=== PATIENT | male | born 1960 | race African-American/Black ===

== ENCOUNTER 2016-06-11 13:35 | Inpatient (IN) | payer OTHER ==
[~2016-06-11] VITALS: Ht 160 cm; Wt 71.7 kg
[~2016-06-11 13:35] MED LIST: AMLO10TA80 PO; ATEN100T PO; HYDR-4134 PO; MULT-1146 PO
[2016-06-11] MEDS ORDERED: MORPHINE SULFATE 4 MG/ML CPJ (NOT FOR IM USE) IV STA (14:16)
[2016-06-11] MEDS ORDERED: SODIUM CHLORIDE 0.9% 1,000 ML IV ONE (14:16)
[2016-06-11] MEDS ORDERED: ONDANSETRON HCL 4MG/2ML VIAL IV STA (14:16)
[2016-06-11 15:00] LABS: BASOPHILS % 1.8 % (0.0-2.0); EOSINOPHILS % 3.9 % (0.0-5.0); HEMATOCRIT. 26.8 % (42.0-52.0); HEMOGLOBIN. 8.1 g/dL (14.0-18.0); LYMPHOCYTES % 41.2 % (20.0-50.0); MEAN CORPUSCULAR HEMOGLOBIN 20.9 pg (28.0-32.0); MEAN CORPUSCULAR HGB CONC 30.2 g/dL (31.0-37.0); MEAN CORPUSCULAR VOLUME 69.3 fL (80.0-94.0); MEAN PLATELET VOLUME 8.4 fl (7.4-10.4); MONOCYTES % 7.7 % (2.0-8.0); NEUTROPHILS % 45.4 % (40.0-76.0); PLATELET 358 x1000/uL (130-400); RED BLOOD CELL COUNT 3.87 mill/uL (4.7-6.1); RED CELL DISTRIBUTION WIDTH 19.2 % (11.6-14.6); WHITE BLOOD COUNT 5.3 x1000/uL (4.5-11.0)
[2016-06-11 15:02] LABS: ADD RBC MORPHOLOGY YES; DIFFERENTIAL COMMENT 1
[2016-06-11 15:11] LABS: PARTIAL THROMBOPLASTIN TIME 22.6 sec (24.0-34.0); PROTHROMBIN TIME 10.3 sec
[2016-06-11 15:15] LABS: ANION GAP 13; CALCIUM 8.5 mg/dL (8.5-10.1); CARBON DIOXIDE 29 mEq/L (21-32); CHLORIDE 106 mEq/L (98-107); UREA NITROGEN BLOOD 43 mg/dL (7-21); eGFR 19 mL/min (>60)
[2016-06-11 15:16] LABS: ALANINE AMINOTRANSFERASE 27 IU/L (13-61); ALBUMIN 3.4 g/dL (3.4-5.0); INDEX HEMOLYSI 1 (1-3); INDEX ICTERIC 1 (1-4); INDEX LIPEMIC 1 (1-3)
[2016-06-11 15:19] LABS: NT PRO B-TYPE NATRIURETIC PEP 1305 pg/mL (5-125); TROPONIN I < 0.02 ng/mL (0.00-0.04)
[2016-06-11 15:33] LABS: HYPOCHROMASIA 2+; PLATELET ESTIMATE NORMAL
[2016-06-11] MEDS ORDERED: FUROSEMIDE 20MG/2ML VIAL IVP ONE (16:00)
[2016-06-11 16:26] LABS: CLARITY URINE CLEAR (CLEAR); COLOR URINE YELLOW (YELLOW); GLUCOSE URINE NEGATIVE (NEGATIVE); KETONES URINE NEGATIVE (NEGATIVE); LEUKOCYTE ESTERASE URINE NEGATIVE (NEGATIVE); NITRITE URINE NEGATIVE (NEGATIVE); OCCULT BLOOD URINE NEGATIVE (NEGATIVE); PH URINE 6.5 (4.5-8.0); PROTEIN URINE 2+ (NEGATIVE); SPECIFIC GRAVITY URINE 1.013 (1.005-1.030); UROBILINOGEN URINE 0.2 E.U./dL (0.2-1.0)
[2016-06-11] MEDS ORDERED: CEFTRIAXONE 1 G PREMIX 50 ML IV ONE (16:45)
[2016-06-11 17:13] LABS: BACTERIA URINE TRACE; RBC URINE NONE SEEN /hpf (0-2); SQUAMOUS EPITHELIAL CELL URINE FEW /lpf (RARE/1+); WBC URINE 0-2 /hpf (0-2)
[2016-06-11] MEDS ORDERED: ENALAPRIL 2.5MG/2ML VIAL 2ML IV ONE (18:15)
[2016-06-11] MEDS ORDERED: CLONIDINE 0.1MG TABLET PO PRN (19:45)
[2016-06-11] MEDS ORDERED: ACETAMINOPHEN 325MG TABLET PO PRN (19:45)
[2016-06-11] MEDS ORDERED: IPRATROPIUM/ALBUTEROL 0.5-3(2.5)MG/3ML NEB INH PRN (19:45)
[2016-06-11] MEDS ORDERED: HYDROCODONE/ACETAMINOPHEN 5/325MG TABLET PO PRN (19:45)
[2016-06-11] MEDS ORDERED: ONDANSETRON HCL 4MG/2ML VIAL IV PRN (19:45)
[2016-06-11] MEDS ORDERED: MAGNESIUM/ALUMINUM HYDROXIDE/SIMETHICONE 30ML UDC PO PRN (19:45)
[2016-06-11 20:05] VITALS: BP 169/106
[2016-06-11 20:24] LABS: *AMPHETAMINES SCREEN URINE NEGATIVE (NEGATIVE); *BARBITURATES SCREEN URINE NEGATIVE (NEGATIVE); *BENZODIAZEPINES SCREEN URINE NEGATIVE (NEGATIVE); *COCAINE SCREEN URINE NEGATIVE (NEGATIVE); CANNABINOID URINE SCREEN NEGATIVE (NEGATIVE); ECSTASY MDMA SCREEN URINE NEGATIVE (NEGATIVE); METHADONE URINE SCREEN NEGATIVE (NEGATIVE); OPIATES URINE SCREEN PRESUMTIVE POSITIVE (NEGATIVE); PHENCYCLIDINE URINE SCREEN NEGATIVE (NEGATIVE)
[2016-06-11 22:00] VITALS: BP 166/116
[2016-06-11] MEDS ORDERED: HYDR-4135 PO (22:28)
[2016-06-11] MEDS: ATENOLOL 100 MG TABLET PO SCH (23:15)
[2016-06-11 23:28] LABS: ANION GAP 12; CALCIUM 8.2 mg/dL (8.5-10.1); CARBON DIOXIDE 28 mEq/L (21-32); CHLORIDE 108 mEq/L (98-107); CREATINE KINASE 124 IU/L (39-308); CREATINE KINASE MB FRACTION 0.8 ng/mL (0.5-3.6); INDEX HEMOLYSI 1 (1-3); INDEX ICTERIC 1 (1-4); INDEX LIPEMIC 1 (1-3); TROPONIN I < 0.02 ng/mL (0.00-0.04); UREA NITROGEN BLOOD 40 mg/dL (7-21); eGFR 20 mL/min (>60)
[2016-06-12] VITALS (7 sets, daily range): BP systolic 129–179; BP diastolic 81–111
[2016-06-12 07:50] LABS: BASOPHILS % 1.2 % (0.0-2.0); HEMATOCRIT. 24.8 % (42.0-52.0); HEMOGLOBIN. 7.6 g/dL (14.0-18.0); LYMPHOCYTES % 35.7 % (20.0-50.0); MEAN CORPUSCULAR HEMOGLOBIN 21.4 pg (28.0-32.0); MEAN CORPUSCULAR HGB CONC 30.8 g/dL (31.0-37.0); MEAN CORPUSCULAR VOLUME 69.4 fL (80.0-94.0); MEAN PLATELET VOLUME 8.9 fl (7.4-10.4); NEUTROPHILS % 48.1 % (40.0-76.0); PLATELET 317 x1000/uL (130-400); RED BLOOD CELL COUNT 3.57 mill/uL (4.7-6.1); RED CELL DISTRIBUTION WIDTH 19.3 % (11.6-14.6); WHITE BLOOD COUNT 5.1 x1000/uL (4.5-11.0)
[2016-06-12 07:56] LABS: DIFFERENTIAL COMMENT 1
[2016-06-12 08:19] LABS: CREATINE KINASE 209 IU/L (39-308); CREATINE KINASE MB FRACTION < 0.5 ng/mL (0.5-3.6); HDL CHOLESTEROL 43 mg/dL (40-59); INDEX HEMOLYSI 1 (1-3); INDEX ICTERIC 1 (1-4); INDEX LIPEMIC 1 (1-3); LDL CHOLESTEROL 114 mg/dL (5-100); THYROID STIMULATING HORMONE 0.45 uIU/mL (0.36-3.74); TRIGLYCERIDE 144 mg/dL (0-150); TROPONIN I < 0.02 ng/mL (0.00-0.04)
[2016-06-12] MEDS: MULTIVITAMINS,THER W-MINERALS TABLET PO SCH (08:31)
[2016-06-12] MEDS: AMLODIPINE 10MG TABLET PO SCH (08:31)
[2016-06-12] MEDS ORDERED: MEDICATION NOT ON FORMULARY EA (Multivitamin (Multi Vitamin Daily) 1 EACH) PO SCH (09:00)
[2016-06-12] MEDS ORDERED: HYDRALAZINE HCL 50MG TABLET PO SCH (09:00)
[2016-06-12] MEDS: ATENOLOL 100 MG TABLET PO SCH ×2 (09:16→21:22)
[2016-06-12] MEDS ORDERED: CLONIDINE 0.1MG TABLET PO SCH (14:00)
[2016-06-12] MEDS: PANTOPRAZOLE SODIUM 40 MG/VIAL IV SCH (14:41)
[2016-06-12] MEDS: HYDRALAZINE HCL 25MG TABLET PO SCH ×2 (14:41→22:21)
[2016-06-12] MEDS ORDERED: CEFTRIAXONE 1 G PREMIX 50 ML IV SCH (16:00)
[2016-06-12] MEDS ORDERED: ATORVASTATIN CALCIUM 10MG TABLET PO SCH (21:00)
[2016-06-13] VITALS (7 sets, daily range): BP systolic 129–187; BP diastolic 88–110
[2016-06-13] MEDS: HYDRALAZINE HCL 25MG TABLET PO SCH (05:28)
[2016-06-13] MEDS: AMLODIPINE 10MG TABLET PO SCH (10:19)
[2016-06-13] MEDS: MULTIVITAMINS,THER W-MINERALS TABLET PO SCH (10:20)
[2016-06-13] MEDS: ATENOLOL 100 MG TABLET PO SCH (10:20)
[2016-06-13] MEDS: PANTOPRAZOLE SODIUM 40 MG/VIAL IV SCH (10:20)
[2016-06-13] MEDS ORDERED: AMPICILLIN 500 MG in SODIUM CHLORIDE 0.9% 50 ML IV SCH (12:00)
[2016-06-13] MEDS ORDERED: HYDRALAZINE HCL 50MG TABLET PO SCH (14:00)
[2016-06-13] MEDS ORDERED: HYDR-4135 PO (14:22)
[2016-06-14] MEDS ORDERED: FAMOTIDINE 20MG TABLET PO SCH (09:00)
== END 2016-06-13 17:40 | disposition home or self-care (01) | DRG 194 ==
LOC: ER 14:14 → 7WST 16:34
PROVIDERS: ADMIT Internal Medicine; ATTEND Internal Medicine
DX: I13.0 Hypertensive heart and chronic kidney disease with heart failure and stage 1 through stage 4 chronic kidney disease, or unspecified chronic kidney disease (principal); N17.9 Acute kidney failure, unspecified; N18.4 Chronic kidney disease, stage 4 (severe); N39.0 Urinary tract infection, site not specified; N04.9 Nephrotic syndrome with unspecified morphologic changes; I50.9 Heart failure, unspecified; E87.6 Hypokalemia; E78.5 Hyperlipidemia, unspecified; D64.9 Anemia, unspecified; R31.9 Hematuria, unspecified; R42 Dizziness and giddiness; E78.00 Pure hypercholesterolemia, unspecified; F17.210 Nicotine dependence, cigarettes, uncomplicated
CPT/HCPCS: 36415; 71010; 74176; 80048; 80053; 80061; 80305; 81001; 82550; 82553; 83605; 83880; 84443; 84484; 85025; 85610; 85730; 86850; 86900; 86920; 87040; 87077; 87086; 87186; 93005; 93970; 96361; 96365; 96375; 99285; C9113; J0290; J0696; J1940; J2270; J2405; J3490; J7030; J7050

== ENCOUNTER 2016-07-02 14:14 | Emergency (ER) | payer OTHER ==
[~2016-07-02] VITALS: Ht 167.6 cm; Wt 79.0 kg
[~2016-07-02 14:14] MED LIST changes: -HYDR-4134 PO; +HYDR-4135 PO
[2016-07-02 15:42] LABS: ADD RBC MORPHOLOGY YES; BASOPHILS % 1.4 % (0.0-2.0); DIFFERENTIAL COMMENT 1; EOSINOPHILS % 5.8 % (0.0-5.0); HEMATOCRIT. 26.5 % (42.0-52.0); MEAN CORPUSCULAR HEMOGLOBIN 20.7 pg (28.0-32.0); MEAN CORPUSCULAR HGB CONC 30.3 g/dL (31.0-37.0); MEAN CORPUSCULAR VOLUME 68.4 fL (80.0-94.0); MEAN PLATELET VOLUME 8.9 fl (7.4-10.4); MONOCYTES % 11.9 % (2.0-8.0); NEUTROPHILS % 57.9 % (40.0-76.0); PLATELET 321 x1000/uL (130-400); RED BLOOD CELL COUNT 3.88 mill/uL (4.7-6.1); WHITE BLOOD COUNT 5.8 x1000/uL (4.5-11.0)
[2016-07-02 15:47] LABS: CHLORIDE 106 mEq/L (98-107); INDEX HEMOLYSI 1 (1-3); INDEX ICTERIC 1 (1-4); INDEX LIPEMIC 1 (1-3)
[2016-07-02 15:54] LABS: ALANINE AMINOTRANSFERASE 36 IU/L (13-61); ALBUMIN 3.3 g/dL (3.4-5.0); ANION GAP 11; CALCIUM 9.2 mg/dL (8.5-10.1); CARBON DIOXIDE 29 mEq/L (21-32); UREA NITROGEN BLOOD 36 mg/dL (7-21)
[2016-07-02 15:58] LABS: eGFR 21 mL/min (>60)
[2016-07-02 16:00] LABS: NT PRO B-TYPE NATRIURETIC PEP 626 pg/mL (5-125); TROPONIN I < 0.02 ng/mL (0.00-0.04)
[2016-07-02 16:15] LABS: HYPOCHROMASIA 2+; PLATELET ESTIMATE NORMAL
[2016-07-02 16:16] LABS: ANISOCYTOSIS 1+
[2016-07-02 16:52] LABS: CLARITY URINE CLEAR (CLEAR); COLOR URINE YELLOW (YELLOW); GLUCOSE URINE NEGATIVE (NEGATIVE); KETONES URINE NEGATIVE (NEGATIVE); LEUKOCYTE ESTERASE URINE NEGATIVE (NEGATIVE); NITRITE URINE NEGATIVE (NEGATIVE); OCCULT BLOOD URINE NEGATIVE (NEGATIVE); PH URINE 7.5 (4.5-8.0); PROTEIN URINE 1+ (NEGATIVE); UROBILINOGEN URINE 0.2 E.U./dL (0.2-1.0)
[2016-07-02 16:55] LABS: BACTERIA URINE NONE SEEN; CALCIUM PHOSPHATE CRYSTALS UR NONE SEEN /lpf; RBC URINE NONE SEEN /hpf (0-2); SQUAMOUS EPITHELIAL CELL URINE NONE SEEN /lpf (RARE/1+); WAXY CASTS URINE NONE SEEN /lpf; WBC URINE 0-2 /hpf (0-2); YEAST URINE NONE SEEN
[2016-07-02] MEDS ORDERED: FUROSEMIDE 20MG/2ML VIAL IVP NR (17:15)
[2016-07-02 18:06] VITALS: BP 164/94
== END 2016-07-02 18:27 | disposition home or self-care (01) ==
LOC: ER 14:31
DX: R60.0 Localized edema (principal); I11.0 Hypertensive heart disease with heart failure; I50.9 Heart failure, unspecified; E78.00 Pure hypercholesterolemia, unspecified; E78.5 Hyperlipidemia, unspecified; F17.200 Nicotine dependence, unspecified, uncomplicated
CPT/HCPCS: 36415; 71010; 80053; 81001; 83880; 84484; 85025; 85610; 93005; 93970; 96374; 99285; J1940

== ENCOUNTER 2017-01-18 15:05 | Observation (INO) | payer MEDICAID, OTHER ==
[~2017-01-18] VITALS: Ht 160 cm; Wt 75.4 kg
[2017-01-18 17:17] LABS: CHLORIDE 106 mEq/L (98-107)
[2017-01-18 17:18] LABS: HEMATOCRIT. 25.5 % (42.0-52.0); HEMOGLOBIN. 7.9 g/dL (14.0-18.0); MEAN CORPUSCULAR HEMOGLOBIN 21.3 pg (28.0-32.0); MEAN CORPUSCULAR VOLUME 68.8 fL (80.0-94.0); MEAN PLATELET VOLUME 8.5 fl (7.4-10.4); PLATELET 344 x1000/uL (130-400); RED BLOOD CELL COUNT 3.71 mill/uL (4.7-6.1); RED CELL DISTRIBUTION WIDTH 18.6 % (11.6-14.6)
[2017-01-18 17:20] LABS: PROTHROMBIN TIME 10.1 sec (9.4-11.6)
[2017-01-18 17:25] LABS: CARBON DIOXIDE 25 mEq/L (21-32)
[2017-01-18 17:29] LABS: TROPONIN I < 0.02 ng/mL (0.00-0.04)
[2017-01-18 17:46] LABS: CLARITY URINE CLEAR (CLEAR); COLOR URINE YELLOW (YELLOW); GLUCOSE URINE NEGATIVE (NEGATIVE); KETONES URINE NEGATIVE (NEGATIVE); LEUKOCYTE ESTERASE URINE NEGATIVE (NEGATIVE); NITRITE URINE NEGATIVE (NEGATIVE); OCCULT BLOOD URINE NEGATIVE (NEGATIVE); PH URINE 5.5 (4.5-8.0); PROTEIN URINE 2+ (NEGATIVE); SPECIFIC GRAVITY URINE 1.016 (1.005-1.030); UROBILINOGEN URINE 0.2 E.U./dL (0.2-1.0)
[2017-01-18 17:56] LABS: *AMPHETAMINES SCREEN URINE NEGATIVE (NEGATIVE); *BARBITURATES SCREEN URINE NEGATIVE (NEGATIVE); *BENZODIAZEPINES SCREEN URINE NEGATIVE (NEGATIVE); *COCAINE SCREEN URINE NEGATIVE (NEGATIVE); CANNABINOID URINE SCREEN NEGATIVE (NEGATIVE); METHADONE URINE SCREEN NEGATIVE (NEGATIVE); OPIATES URINE SCREEN NEGATIVE (NEGATIVE); PHENCYCLIDINE URINE SCREEN NEGATIVE (NEGATIVE)
[2017-01-18 17:57] LABS: PLATELET ESTIMATE NORMAL
[2017-01-18 23:30] VITALS: BP 157/101
[2017-01-19] VITALS (7 sets, daily range): BP systolic 129–140; BP diastolic 86–91
[2017-01-19] MEDS ORDERED: DIPHENHYDRAMINE 50MG/ML VIAL IV PRN (00:15)
[2017-01-19] MEDS ORDERED: CLONIDINE 0.1MG TABLET PO PRN (00:15)
[2017-01-19] MEDS ORDERED: ONDANSETRON HCL 4MG/2ML VIAL IV PRN (00:15)
[2017-01-19] MEDS ORDERED: ACETAMINOPHEN 325MG TABLET PO PRN (00:15)
[2017-01-19] MEDS ORDERED: IPRATROPIUM/ALBUTEROL 0.5-3(2.5)MG/3ML NEB INH PRN (00:15)
[2017-01-19] MEDS ORDERED: MAGNESIUM/ALUMINUM HYDROXIDE/SIMETHICONE 30ML UDC PO PRN (00:15)
[2017-01-19 02:18] LABS: TOTAL IRON BINDING CAPACITY 503 ug/dL (250-450)
[2017-01-19] MEDS ORDERED: IRON SUCROSE COMPLEX 100 MG/5 ML ML IV NR (03:00)
[2017-01-19] MEDS: SODIUM CHLORIDE 0.9% INJ 3ML FLUSH IVF SCH ×2 (06:33→14:10)
[2017-01-19] MEDS ORDERED: ATENOLOL 50 MG TABLET PO SCH (09:00)
[2017-01-19] MEDS ORDERED: AMLODIPINE 10MG TABLET PO SCH (09:00)
== END 2017-01-19 18:00 | disposition home or self-care (01) ==
LOC: ER 15:38 → INTOOBSV 19:47 → 6WST 19:47 → ENRESERV 22:30 → 6WST 01-19 00:05
PROVIDERS: ADMIT Internal Medicine; ATTEND Internal Medicine
DX: D64.9 Anemia, unspecified (principal); I13.0 Hypertensive heart and chronic kidney disease with heart failure and stage 1 through stage 4 chronic kidney disease, or unspecified chronic kidney disease; I50.9 Heart failure, unspecified; N18.9 Chronic kidney disease, unspecified; N17.0 Acute kidney failure with tubular necrosis; F17.210 Nicotine dependence, cigarettes, uncomplicated
CPT/HCPCS: 36415; 71010; 80053; 80305; 81001; 83036; 83540; 83550; 83880; 84484; 85025; 85610; 86850; 86900; 86901; 93005; 96374; 99285; G0378

== ENCOUNTER 2018-05-19 16:27 | Emergency (ER) | payer OTHER ==
[~2018-05-19] VITALS: Ht 160 cm; Wt 84.0 kg
[~2018-05-19 16:27] MED LIST changes: -HYDR-4135 PO
[2018-05-19 22:51] LABS: BASOPHILS % 1.1 % (0.0-2.0); EOSINOPHILS % 3.9 % (0.0-5.0); HEMOGLOBIN. 8.3 g/dL (14.0-18.0); LYMPHOCYTES % 21.6 % (20.0-50.0); MEAN CORPUSCULAR HEMOGLOBIN 23.1 pg (28.0-32.0); MEAN CORPUSCULAR VOLUME 74.9 fL (80.0-94.0); MEAN PLATELET VOLUME 9.1 fl (7.4-10.4); MONOCYTES % 9.1 % (2.0-8.0); NEUTROPHILS % 64.3 % (40.0-76.0); PLATELET 294 x1000/uL (130-400); RED CELL DISTRIBUTION WIDTH 16.6 % (11.6-14.6)
[2018-05-19 22:58] LABS: CHLORIDE 108 mEq/L (98-107)
[2018-05-19 23:29] LABS: CLARITY URINE CLEAR (CLEAR); COLOR URINE YELLOW (YELLOW); KETONES URINE NEGATIVE (NEGATIVE); LEUKOCYTE ESTERASE URINE NEGATIVE (NEGATIVE); NITRITE URINE NEGATIVE (NEGATIVE); OCCULT BLOOD URINE NEGATIVE (NEGATIVE); PH URINE 6.5 (4.5-8.0); PROTEIN URINE 2+ (NEGATIVE); SPECIFIC GRAVITY URINE 1.007 (1.005-1.030); UROBILINOGEN URINE 0.2 E.U./dL (0.2-1.0)
[2018-05-20 02:52] VITALS: BP 155/83
== END 2018-05-20 03:04 | disposition short-term general hospital (02) ==
LOC: ER 16:40 → CANBEDREQ 05-20 03:53
DX: I13.2 Hypertensive heart and chronic kidney disease with heart failure and with stage 5 chronic kidney disease, or end stage renal disease (principal); N18.6 End stage renal disease; I50.9 Heart failure, unspecified; D63.1 Anemia in chronic kidney disease; R06.00 Dyspnea, unspecified
CPT/HCPCS: 36415; 71045; 83880; 84484; 86850; 86900; 93005; 99285